=== PATIENT | female | born 1960 | race Caucasian/White ===

== ENCOUNTER 2017-08-12 14:47 | Outpatient (CLI) | payer BC | END 2017-08-12 19:41 | disposition home or self-care (01) | LOC: SMA 14:47 | PROVIDERS: ATTEND General Practice | DX: Z12.31 Encounter for screening mammogram for malignant neoplasm of breast (principal) | CPT/HCPCS: 77067 ==

== ENCOUNTER 2018-11-13 10:32 | Outpatient (CLI) | payer BC | END 2018-11-13 12:32 | disposition home or self-care (01) | LOC: SMA 10:32 | PROVIDERS: ATTEND General Practice | DX: Z12.31 Encounter for screening mammogram for malignant neoplasm of breast (principal) | CPT/HCPCS: 77067 ==

== ENCOUNTER 2020-07-07 02:15 | Emergency (ER) | payer BC ==
[~2020-07-07] VITALS: Ht 175.3 cm; Wt 106.1 kg
--- NOTE | 2020-07-07 02:21 | NUR ---
Patient to ER bed 5 to gown for evaluation. Side rails up.
[2020-07-07 02:25] VITALS: BP_SYST 157
--- NOTE | 2020-07-07 02:25 | NUR ---
Patient came to ER with family. C/O back pain x 2 days. Patient had back pain for 2 days, Hx Back surgery x 4 , on process for CT scan. Patient could not tolerate her pain. A/O,X4, lower back pain, pain rate 9/10, radiate to left leg.
--- NOTE | 2020-07-07 02:30 | NUR ---
ER Dr. Castro at bedside examining patient.
[2020-07-07] MEDS ORDERED: MORPHINE 4 MG/ML INJ. SYRINGE ONE (02:44)
[2020-07-07] MEDS ORDERED: MORPHINE 4 MG/ML INJ. SYRINGE IM ONE (02:45)
--- NOTE | 2020-07-07 03:39 | NUR ---
Patient came back from CT scan via wheelchair.
[2020-07-07 04:52] VITALS: BP_SYST 155
--- NOTE | 2020-07-07 04:52 | NUR ---
Patient given written and verbal discharge instructions and verbalizes understanding. ER MD discussed with patient the results and treatment provided. Patient in stable condition. ID arm band removed. Rx of Tramadol given. Patient educated on pain management and to follow up with PMD. Pain Scale 2/10. Opportunity for questions provided and answered. Medication side effect fact sheet provided.
== END 2020-07-07 04:52 | disposition home or self-care (01) ==
LOC: SED 02:15
DX: M54.5 Low back pain (principal); Z88.8 Allergy status to other drugs, medicaments and biological substances
CPT/HCPCS: 72131; 76376; 96372; 99284; J2270

== ENCOUNTER 2020-10-08 10:08 | Emergency (ER) | payer BC ==
[~2020-10-08] VITALS: Ht 175.3 cm; Wt 103.4 kg
[2020-10-08 10:08] VITALS: BP_SYST 150
[2020-10-08] MEDS ORDERED: KETAMINE 30 MG/3 ML SYRINGE IM ONE (10:45)
[2020-10-08] MEDS ORDERED: MORPHINE 4 MG/ML INJ. SYRINGE IM ONE (10:45)
[2020-10-08] MEDS ORDERED: MORPHINE 4 MG/ML INJ. SYRINGE ONE (10:45)
[2020-10-08] MEDS ORDERED: ONDANSETRON 4 MG ODT TAB ONE (11:38)
[2020-10-08 11:45] VITALS: BP_SYST 144
[2020-10-08] MEDS ORDERED: ONDANSETRON 4 MG ODT TAB PO ONE (11:45)
[2020-10-08] MEDS ORDERED: HYDR-4272 PO ×2 (11:46→12:31)
[2020-10-08] MEDS ORDERED: NAPR-1172 PO (11:46)
[2020-10-08] MEDS ORDERED: MED4 PO ×2 (11:46)
[2020-10-08] MEDS ORDERED: HYDR-4086 PO (12:08)
== END 2020-10-08 11:50 | disposition home or self-care (01) ==
LOC: SED 10:08
DX: M54.5 Low back pain (principal); Z79.899 Other long term (current) drug therapy; Z88.1 Allergy status to other antibiotic agents
CPT/HCPCS: 93005; 96372; 99284; J2270; Q0162

== ENCOUNTER 2021-01-11 00:54 | Emergency (ER) | payer BC ==
[~2021-01-11] VITALS: Ht 175.3 cm; Wt 102.5 kg
[2021-01-11 00:54] VITALS: BP_SYST 156
[~2021-01-11 00:54] MED LIST: HYDR-4086 PO; HYDR-4272 PO; MED4 PO; NAPR-1172 PO
[2021-01-11] MEDS ORDERED: CEPH250C PO (02:06)
[2021-01-11] MEDS ORDERED: cephALEXin 500 MG CAPSULE PO ONE (02:15)
[2021-01-11 02:17] VITALS: BP_SYST 146
== END 2021-01-11 02:17 | disposition home or self-care (01) ==
LOC: SED 00:54
DX: L03.317 Cellulitis of buttock (principal); Z88.8 Allergy status to other drugs, medicaments and biological substances; Z79.899 Other long term (current) drug therapy
CPT/HCPCS: 99283

== ENCOUNTER 2021-02-13 08:11 | Emergency (ER) | payer BC, MEDICARE ==
[~2021-02-13] VITALS: Ht 175.3 cm; Wt 100.2 kg
[~2021-02-13 08:11] MED LIST changes: +CEPH250C PO
[2021-02-13 08:27] VITALS: BP_SYST 112
[2021-02-13] MEDS ORDERED: CYCLOBENZAPRINE HCL 10 MG TABLET (FLEXERIL) PO ONE (08:30)
[2021-02-13] MEDS ORDERED: OXYCODONE/ACETAMINOPHEN 5-325 TABLET PO ONE (09:45)
[2021-02-13 10:40] VITALS: BP_SYST 114
== END 2021-02-13 10:40 | disposition home or self-care (01) ==
LOC: SED 08:11
DX: M47.22 Other spondylosis with radiculopathy, cervical region (principal); G89.29 Other chronic pain; M54.5 Low back pain; Z88.8 Allergy status to other drugs, medicaments and biological substances; Z79.899 Other long term (current) drug therapy
CPT/HCPCS: 72125-TC; 76376; 99284

== ENCOUNTER 2021-03-24 04:50 | Emergency (ER) | payer MEDICARE ==
[~2021-03-24] VITALS: Ht 175.3 cm; Wt 99.8 kg
[2021-03-24 05:00] VITALS: BP_SYST 131
--- NOTE | 2021-03-24 06:12 | NUR ---
Patient to ER bed 4 to gown for evaluation. Side rails up. Report given to PRAVEEN ARORA.
--- NOTE | 2021-03-24 06:20 | NUR ---
PATIENT AAOX4 AND AMBULATORY FROM HOME C/O LOWER BACK PAIN SINCE YESTERDAY. PATIENT HAS CHRONIC BACK PAIN. VSS. DENIES ANY SOB OR CP. STATING NOT WANTING ANY NARCOTICS. CURRENTLY STATING 7/10 ON THE PAIN SCALE.
--- NOTE | 2021-03-24 06:29 | NUR ---
DR. DUNLAP AT BEDSIDE FOR EVALUATION.
[2021-03-24] MEDS ORDERED: OXYCODONE/ACETAMINOPHEN 5-325 TABLET PO ONE (06:30)
--- NOTE | 2021-03-24 07:00 | NUR ---
PORTABLE XRAY DONE AT BEDSIDE.
--- NOTE | 2021-03-24 07:15 | NUR ---
REPORT GIVEN TO ULYSSES BADILLO
[2021-03-24 07:52] VITALS: BP_SYST 129
--- NOTE | 2021-03-24 07:52 | NUR ---
Patient given written and verbal discharge instructions and verbalizes understanding. ER MD discussed with patient the results and treatment provided. Patient in stable condition. ID arm band removed. NO Rx given. Patient educated on pain management and to follow up with PMD. Pain 0/10. Opportunity for questions provided and answered. Medication side effect fact sheet provided.
== END 2021-03-24 07:52 | disposition home or self-care (01) ==
LOC: SED 04:50
DX: G89.29 Other chronic pain (principal); M54.5 Low back pain; F31.9 Bipolar disorder, unspecified; Z88.8 Allergy status to other drugs, medicaments and biological substances; Z79.899 Other long term (current) drug therapy
CPT/HCPCS: 72170-TC; 99283

== ENCOUNTER 2021-05-13 12:59 | Emergency (ER) | payer MEDICARE ==
[~2021-05-13] VITALS: Ht 175.3 cm; Wt 99.8 kg
[2021-05-13 13:15] VITALS: BP_SYST 156
--- NOTE | 2021-05-13 13:27 | NUR ---
placed in bed 2, assumed care
--- NOTE | 2021-05-13 13:30 | NUR ---
Pt. drove self here with c/o muscle spams through entire body 10/10 on pain scale, pt. is tearful, states she just needs answers to cause of spasms and pain, had back surgery Sept 8th for back pain that radiated down left buttocks and leg but pt. stated this pain different affecting her entire body even intestines and colon.
--- NOTE | 2021-05-13 13:53 | NUR ---
ER at bedside examining patient.
[2021-05-13] MEDS ORDERED: NACL 0.9% 1,000 ML IV ONE (14:15)
[2021-05-13] MEDS ORDERED: HYDROcodone/ACETAMIN 7.5-325 MG TAB PO ONE (14:15)
[2021-05-13 14:40] LABS: BASOPHILS # (AUTO) 0.2 K/uL (0.0-0.2); BASOPHILS % (AUTO) 2.7 % (0.0-2.0); EOSINOPHILS # (AUTO) 0.2 K/uL (0.0-0.4); EOSINOPHILS % (AUTO) 2.5 % (0.0-4.0); HEMATOCRIT 45.1 % (36-48); HEMOGLOBIN 14.8 g/dL (12.0-16.0); LYMPHOCYTES # (AUTO) 1.1 K/uL (1.0-5.5); LYMPHOCYTES % (AUTO) 11.6 % (20.5-51.5); MEAN CORPUSCULAR HEMOGLOBIN 30 pg (27-31); MEAN CORPUSCULAR HGB CONC 33 % (32-36); MEAN CORPUSCULAR VOLUME 90 fL (79.0-98.0); MONOCYTES # (AUTO) 0.5 K/uL (0.0-1.0); NEUTROPHILS # (AUTO) 7.3 K/uL (1.8-7.7); NEUTROPHILS % (AUTO) 78.2 % (40.0-70.0); PLATELET COUNT (AUTO) 283 K/uL (130-430); RED BLOOD CELL COUNT(AUTO) 5.02 MIL/uL (4.2-6.2); RED CELL DISTRIBUTION WIDTH 13.8 % (9.0-15.0); WHITE BLOOD COUNT (AUTO) 9.3 K/uL (4.8-10.8)
[2021-05-13 14:47] LABS: CALCIUM 10.4 mg/dL (8.4-11.0); CREATININE 0.93 mg/dL (0.55-1.30)
[2021-05-13 14:53] LABS: ALBUMIN 3.9 g/dL (3.4-4.8); TOTAL BILIRUBIN 0.3 mg/dL (0.0-1.0)
[2021-05-13 15:23] LABS: BILIRUBIN,URINE NEGATIVE (NEGATIVE); BLOOD, URINE NEGATIVE (NEGATIVE); CLARITY/URINE HAZY (CLEAR); COLOR,URINE YELLOW (YELLOW); GLUCOSE,URINE NEGATIVE (NEGATIVE); KETONES,URINE NEGATIVE (NEGATIVE); LEUKOCYTE ESTERASE ,URINE 3+ (NEGATIVE); NITRITE, URINE NEGATIVE (NEGATIVE); PROTEIN URINE NEGATIVE (NEGATIVE); UROBILINOGEN,URINE 0.2 (0.2-1.0)
[2021-05-13 15:25] LABS: BACTERIA,URINE None Seen /HPF (None Seen); RBC,URINE NONE SEEN /HPF (0-3)
[2021-05-13 15:26] LABS: CALCIUM OXALATE CRYSTALS,UR None Seen /HPF (None Seen); CALCIUM PHOSPHATE CRYSTALS,UR None Seen /HPF (None Seen); TRICHOMONAS,URINE None Seen /HPF (None Seen); YEAST,URINE None Seen /HPF (None Seen)
--- NOTE | 2021-05-13 15:50 | NUR ---
Pt. stated pain decreased from 10 to 6 and spasms improved but starting to come back
--- NOTE | 2021-05-13 15:57 | NUR ---
Patient transported to radiology via wheelchair, accompanied by staff.
[2021-05-13 17:36] VITALS: BP_SYST 145
--- NOTE | 2021-05-13 17:37 | NUR ---
Patient given written and verbal discharge instructions and verbalizes understanding. ER Dr. Licea discussed with patient the results and treatment provided. Patient in stable condition. ID arm band removed. IV catheter removed intact and dressing applied, no active bleeding. Patient educated on pain management and to follow up with PMD. Pain Scale 3. Opportunity for questions provided and answered. Medication side effect fact sheet provided.
[2021-05-14] MEDS ORDERED: PHEN16.236 PO (21:49)
[2021-05-14] MEDS ORDERED: SULF1TAB48 PO (21:49)
== END 2021-05-13 17:37 | disposition home or self-care (01) ==
LOC: SED 12:59
DX: R10.9 Unspecified abdominal pain (principal); G89.29 Other chronic pain; M54.9 Dorsalgia, unspecified; E11.9 Type 2 diabetes mellitus without complications; Z88.8 Allergy status to other drugs, medicaments and biological substances; Z79.899 Other long term (current) drug therapy
CPT/HCPCS: 36415; 74176; 76376; 80053; 81000; 85025; 93005; 96360; 99285; J7030

== ENCOUNTER 2021-05-14 16:56 | Emergency (ER) | payer MEDICARE ==
[~2021-05-14] VITALS: Ht 175.3 cm; Wt 99.8 kg
[2021-05-14 17:10] VITALS: BP_SYST 143
--- NOTE | 2021-05-14 17:10 | NUR ---
Patient to ER bed 08 to gown for evaluation. Side rails up.
--- NOTE | 2021-05-14 17:10 | NUR ---
Pt to remain in the ER lobby until ER bed becomes available.
--- NOTE | 2021-05-14 17:18 | NUR ---
Patient presents to the ED for abdominal cramping and dry mouth since yesterday. She endorses that when she drinks water, it "goes right through" and she has to urinate "5 minutes later." She adds that after she had some chicken noodle soup today, she had 1 episode of diarrhea. Denies pain at this time. Patient resting quietly in gurney. Respirations even. No acute distress noted.
--- NOTE | 2021-05-14 17:46 | NUR ---
ER Dr. Wang at bedside examining patient.
[2021-05-14 18:38] LABS: BASOPHILS % (AUTO) 0.2 % (0.0-2.0); EOSINOPHILS % (AUTO) 0.3 % (0.0-4.0); HEMATOCRIT 44.6 % (36-48); HEMOGLOBIN 14.8 g/dL (12.0-16.0); LYMPHOCYTES # (AUTO) 1.6 K/uL (1.0-5.5); LYMPHOCYTES % (AUTO) 16.5 % (20.5-51.5); MEAN CORPUSCULAR HEMOGLOBIN 30 pg (27-31); MEAN CORPUSCULAR HGB CONC 33 % (32-36); MEAN CORPUSCULAR VOLUME 89 fL (79.0-98.0); MONOCYTES # (AUTO) 0.7 K/uL (0.0-1.0); MONOCYTES % (AUTO) 6.7 % (1.7-9.3); NEUTROPHILS # (AUTO) 7.5 K/uL (1.8-7.7); NEUTROPHILS % (AUTO) 76.3 % (40.0-70.0); PLATELET COUNT (AUTO) 269 K/uL (130-430); RED BLOOD CELL COUNT(AUTO) 5.01 MIL/uL (4.2-6.2); RED CELL DISTRIBUTION WIDTH 13.3 % (9.0-15.0); WHITE BLOOD COUNT (AUTO) 9.8 K/uL (4.8-10.8)
[2021-05-14 19:23] LABS: CALCIUM 9.8 mg/dL (8.4-11.0); CREATININE 0.89 mg/dL (0.55-1.30); POTASSIUM 4.3 mmol/L (3.5-5.1)
[2021-05-14 19:29] LABS: ALBUMIN 3.9 g/dL (3.4-4.8); TOTAL BILIRUBIN 0.4 mg/dL (0.0-1.0)
--- NOTE | 2021-05-14 20:10 | NUR ---
Patient resting quietly. No acute distress noted.
--- NOTE | 2021-05-14 21:22 | NUR ---
Patient resting quietly in bedside sleeping. Chest rise and fall noted
[2021-05-14 21:31] LABS: BILIRUBIN,URINE NEGATIVE (NEGATIVE); BLOOD, URINE NEGATIVE (NEGATIVE); CLARITY/URINE CLEAR (CLEAR); GLUCOSE,URINE NEGATIVE (NEGATIVE); KETONES,URINE NEGATIVE (NEGATIVE); LEUKOCYTE ESTERASE ,URINE TRACE (NEGATIVE); NITRITE, URINE NEGATIVE (NEGATIVE); PROTEIN URINE NEGATIVE (NEGATIVE); UROBILINOGEN,URINE 0.2 (0.2-1.0)
--- NOTE | 2021-05-14 21:31 | NUR ---
Patient up out of bed. Informed that Lab is behind. notified.
[2021-05-14] MEDS ORDERED: SULF1TAB48 PO (21:49)
[2021-05-14] MEDS ORDERED: PHEN16.236 PO (21:49)
[2021-05-14] MEDS ORDERED: DICYCLOMINE HCL 10 MG/5 ML SOLUTION ONE (21:53)
[2021-05-14] MEDS ORDERED: SULFAMETHOXAZOLE/TRIMETHOPR DS 1 TABLET ONE (21:53)
[2021-05-14 21:56] VITALS: BP_SYST 132
--- NOTE | 2021-05-14 21:56 | NUR ---
Patient given written and verbal discharge instructions and verbalizes understanding. ER MD discussed with patient the results and treatment provided. Patient in stable condition. ID arm band removed. Rx of bactrim and bentyl given. Patient educated on pain management and to follow up with PMD. Pain Scale 0/10 Opportunity for questions provided and answered. Medication side effect fact sheet provided.
[2021-05-14 21:57] LABS: COLOR,URINE STRAW (YELLOW)
[2021-05-14 22:07] LABS: BACTERIA,URINE FEW /HPF (None Seen); MUCUS,URINE None Seen /LPF (None Seen); RBC,URINE NONE SEEN /HPF (0-3); WBC,URINE 0-3 /HPF (0-3)
== END 2021-05-14 21:56 | disposition home or self-care (01) ==
LOC: SED 16:56
DX: R10.9 Unspecified abdominal pain (principal); R19.7 Diarrhea, unspecified; I10 Essential (primary) hypertension; E11.9 Type 2 diabetes mellitus without complications; Z88.8 Allergy status to other drugs, medicaments and biological substances; Z79.899 Other long term (current) drug therapy
CPT/HCPCS: 36415; 80053; 81000; 83690; 85025; 87086; 99283

== ENCOUNTER 2021-05-21 17:55 | Emergency (ER) | payer MEDICARE, OTHER ==
[~2021-05-21] VITALS: Ht 175.3 cm; Wt 99.8 kg
[~2021-05-21 17:55] MED LIST changes: +SULF1TAB48 PO
[2021-05-21 18:07] VITALS: BP_SYST 101
[2021-05-21] MEDS ORDERED: ONDANSETRON 4 MG ODT TAB PO ONE (23:15)
[2021-05-21] MEDS ORDERED: KETOROLAC TROMETHAMINE 60 MG/2 ML VIAL IM ONE (23:15)
[2021-05-21] MEDS ORDERED: MORPHINE 2 MG/ML INJ. SYRINGE IM ONE (23:15)
[2021-05-21 23:24] VITALS: BP_SYST 139
== END 2021-05-21 23:21 | disposition home or self-care (01) ==
LOC: SED 17:55
DX: G89.29 Other chronic pain (principal); M54.50 Low back pain, unspecified; I10 Essential (primary) hypertension; E11.9 Type 2 diabetes mellitus without complications; Z88.8 Allergy status to other drugs, medicaments and biological substances; Z79.899 Other long term (current) drug therapy
CPT/HCPCS: 96372; 99284; J1885; J2270; Q0162